=== PATIENT | female | born 1950 | race Caucasian/White ===

== ENCOUNTER → 2017-12-13 | Outpatient (CLI) | payer OTHER, BC | END | disposition home or self-care (01) | LOC: HKI 08:40 | DX: Z47.1 Aftercare following joint replacement surgery (principal); Z96.652 Presence of left artificial knee joint | CPT/HCPCS: 73565 ==

== ENCOUNTER → 2017-12-27 | Outpatient (CLI) | payer OTHER, MEDICARE | END | disposition home or self-care (01) | LOC: HKI 10:29 | DX: Z01.818 Encounter for other preprocedural examination (principal) | CPT/HCPCS: G0463 ==

== ENCOUNTER 2018-01-06 09:07 | Inpatient (IN) | payer OTHER, MEDICARE ==
[~2018-01-06 09:07] MED LIST: CLINDAMYCIN 900 MG/50 ML D5W IVPB IVPB; LIDOCAINE 2% (SDV) 5 ML INJ; PROPOFOL 200 MG INJ
[2018-01-06] MEDS ORDERED: POLYMYXIN B 500000 UNIT INJ ×2 (09:38→15:51)
[2018-01-06] MEDS: ACETAMINOPHEN 1000MG/100ML IV 100 ML IVPB (11:54)
[2018-01-06] MEDS: DEXAMETHASONE 4 MG/ML 1 ML INJ IV (11:54)
[2018-01-06] MEDS: ONDANSETRON 4 MG INJ IV ×3 (11:54→20:30)
[2018-01-06] MEDS: LANSOPRAZOLE 30 MG CAP PO (11:54)
[2018-01-06] MEDS ORDERED: BACITRACIN 50000 UNITS INJ ×2 (12:56→15:52)
[2018-01-06] MEDS ORDERED: POLYMYXIN/BACITRACIN 1L IRRIG (12:59)
[2018-01-06] MEDS: LACTATED RINGER'S 1,000 ML IV* (13:00)
[2018-01-06] MEDS ORDERED: FENTAnyl 50 MCG/ML VIAL (13:22)
[2018-01-06] MEDS ORDERED: BUPIVACAINE 0.75%/DEXT (SPINAL) 2 ML INJ (13:22)
[2018-01-06] MEDS ORDERED: MIDAZOLAM 1 MG/ML 2 ML INJ (13:22)
[2018-01-06] MEDS ORDERED: HYDROmorphONE 2 MG/ML SYG (13:54)
[2018-01-06] MEDS ORDERED: DEXAMETHASONE 4 MG/ML 1 ML INJ ×2 (14:04→16:44)
[2018-01-06] MEDS ORDERED: ONDANSETRON 4 MG INJ (14:04)
[2018-01-06] MEDS ORDERED: FAMOTIDINE 20 MG INJ (14:05)
[2018-01-06] MEDS ORDERED: DIPHENHYDRAMINE 50 MG INJ IV (14:30)
[2018-01-06] MEDS ORDERED: oxyCODONE 5 MG TAB PO ×2 (14:30)
[2018-01-06] MEDS ORDERED: SENNA/DOCUSATE NA (8.6MG/50MG) TAB PO (14:30)
[2018-01-06] MEDS ORDERED: BETHANECHOL 25 MG TAB PO (14:30)
[2018-01-06] MEDS ORDERED: NALOXONE (0.4 MG/ML) INJ IV (14:30)
[2018-01-06] MEDS ORDERED: NA PHOSPHATE/BIPHOS 133 ML ENEMA PR (14:30)
[2018-01-06] MEDS ORDERED: BISACODYL 10 MG SUPP PR (14:30)
[2018-01-06] MEDS ORDERED: MAGNESIUM HYDROXIDE 30ML CUP PO (14:30)
[2018-01-06] MEDS: TRANEXAMIC ACID 1,000 MG in NS 100 ML INTRA-OP X1 IVPB (15:18)
[2018-01-06] MEDS: BACITRACIN 50000 UNITS INJ (16:12)
[2018-01-06] MEDS: POLYMYXIN B 500000 UNIT INJ (16:12)
[2018-01-06] MEDS: TRANEXAMIC ACID 1,000 MG in NS 100 ML PRE-OP X1 IVPB ×2 (16:39)
[2018-01-06] MEDS ORDERED: ROPIVACAINE 0.5 % 30 ML VIAL (16:44)
[2018-01-06] MEDS ORDERED: SUGAMMADEX SODIUM 200 MG/2 ML VIAL IV (16:58)
[2018-01-06] MEDS: DOCUSATE SODIUM 100 MG CAP PO (18:11)
[2018-01-06] MEDS: ASPIRIN (EC) 325 MG TAB PO (18:11)
[2018-01-06] MEDS: SOD CHLORIDE 0.9% 1,000 ML IV (18:12)
[2018-01-06] MEDS: VANCOMYCIN 1 GM (PMX) 250 ML IVPB (19:54)
[2018-01-06] MEDS: KETOROLAC 15 MG INJ IV (23:21)
[2018-01-07] MEDS: ONDANSETRON 4 MG INJ IV ×2 (02:30→07:58)
[2018-01-07] MEDS: SOD CHLORIDE 0.9% 1,000 ML IV (04:30)
[2018-01-07 05:22] LABS: ADD MAN DIFF? NO
[2018-01-07 05:29] LABS: WHITE BLOOD COUNT 11.8 10^3/ul (4.8-10.8)
[2018-01-07 05:29] LABS: ABNORMAL IP MESSAGE 1; BASOPHILS % 0.2 % (0.0-2.0); LYMPHOCYTES # 0.5 10^3/ul (0.8-2.9); LYMPHOCYTES % 4.3 % (15.0-51.0); MEAN CORPUSCULAR HEMOGLOBIN 28.6 pg (29.0-33.0); MEAN CORPUSCULAR HGB CONC 32.4 g/dl (32.0-37.0); MEAN CORPUSCULAR VOLUME 88.3 fl (82.0-101.0); MEAN PLATELET VOLUME 12.9 fl (7.4-10.4); MONOCYTE # 0.6 10^3/ul (0.3-0.9); MONOCYTES % 4.7 % (0.0-11.0); NEUTROPHIL # 10.7 10^3/ul (1.6-7.5); PLATELET COUNT 176 10^3/UL (140-415); RED BLOOD COUNT 3.85 10^6/ul (4.20-5.40); RED CELL DISTRIBUTION WIDTH 13.7 % (11.5-14.5)
[2018-01-07 05:39] LABS: POSITIVE DIFF @See below
[2018-01-07 05:46] LABS: ANION GAP 14 (8-16); BLOOD UREA NITROGEN 18 mg/dl (7-20); CALCIUM 8.6 mg/dl (8.4-10.2); CARBON DIOXIDE 29 mmol/L (21-31); CHLORIDE 102 mmol/L (97-110); CREATININE 0.63 mg/dl (0.44-1.00); GLUCOSE 151 mg/dl (70-220); POTASSIUM 4.4 mmol/L (3.5-5.1); SODIUM 141 mmol/L (135-144)
[2018-01-07] MEDS: LEVOTHYROXINE 150 MCG TAB PO (06:56)
[2018-01-07] MEDS: oxyCODONE 5 MG TAB PO ×2 (06:57→14:13)
[2018-01-07] MEDS: VANCOMYCIN 1 GM (PMX) 250 ML IVPB (07:57)
[2018-01-07] MEDS: DOCUSATE SODIUM 100 MG CAP PO (10:17)
[2018-01-07] MEDS: FERROUS FUMARATE (SR) TAB PO (10:17)
[2018-01-07] MEDS: CELECOXIB 100 MG CAP PO (10:17)
[2018-01-07] MEDS: ASPIRIN (EC) 325 MG TAB PO (10:17)
[2018-01-07] MEDS: GABAPENTIN 100 MG CAP PO (10:17)
[2018-01-08] MEDS ORDERED: PANTOPRAZOLE (EC) 40 MG TAB PO (06:00)
== END 2018-01-07 17:15 | disposition home health service (06) | DRG 468 ==
LOC: REC 09:07 → MS1 18:58
PROC: 0SPD0JZ Removal of Synthetic Substitute from Left Knee Joint, Open Approach (ICD-10-PCS; principal; 2018-01-06 13:20)
PROC: 0SRD0J9 Replacement of Left Knee Joint with Synthetic Substitute, Cemented, Open Approach (ICD-10-PCS; 2018-01-06 13:20)
DX: T84.063A Wear of articular bearing surface of internal prosthetic left knee joint, initial encounter (principal); Y84.8 Other medical procedures as the cause of abnormal reaction of the patient, or of later complication, without mention of misadventure at the time of the procedure; Y92.019 Unspecified place in single-family (private) house as the place of occurrence of the external cause; E03.9 Hypothyroidism, unspecified; Z96.653 Presence of artificial knee joint, bilateral; Z78.0 Asymptomatic menopausal state; Z79.82 Long term (current) use of aspirin
CPT/HCPCS: 73560; 80048; 85025; 86850; 86870; 86900; 86901; 86902; 87070; 87075; 87081; 87102; 87116; 97110; 97116; 97161; 97167; 97530; C1776

== ENCOUNTER → 2018-01-17 | Outpatient (CLI) | payer OTHER, MEDICARE | END | disposition home or self-care (01) | LOC: HKI 10:27 | DX: Z09 Encounter for follow-up examination after completed treatment for conditions other than malignant neoplasm (principal); L29.9 Pruritus, unspecified; Z96.652 Presence of left artificial knee joint; Z88.0 Allergy status to penicillin | CPT/HCPCS: 73560; 73560-LT ==

== ENCOUNTER → 2018-02-14 | Outpatient (CLI) | payer OTHER, MEDICARE | END | disposition home or self-care (01) | LOC: HKI 10:25 | DX: Z09 Encounter for follow-up examination after completed treatment for conditions other than malignant neoplasm (principal); Z96.652 Presence of left artificial knee joint; L23.9 Allergic contact dermatitis, unspecified cause | CPT/HCPCS: 73560; 73560-LT ==

== ENCOUNTER → 2018-03-28 | Outpatient (CLI) | payer OTHER, MEDICARE | END | disposition home or self-care (01) | LOC: HKI 10:37 | DX: Z47.1 Aftercare following joint replacement surgery (principal); Z96.652 Presence of left artificial knee joint | CPT/HCPCS: 73560; 73560-LT ==

== ENCOUNTER → 2018-07-18 | Outpatient (CLI) | payer OTHER, MEDICARE | END | disposition home or self-care (01) | LOC: HKI 10:24 | DX: Z47.1 Aftercare following joint replacement surgery (principal); Z96.652 Presence of left artificial knee joint | CPT/HCPCS: 73560; 73560-LT ==